=== PATIENT | male | born 1945 | race Caucasian/White ===

== ENCOUNTER 2022-10-26 09:08 | Outpatient (CLI) | payer MEDICARE, BC, SELFPAY ==
[2022-10-26 15:04] LABS: Chloride* 105 mmol/L (96-114)
[2022-10-26 15:05] LABS: Potassium* 4.5 mmol/L (3.6-5.1); Sodium* 139 mmol/L (135-149)
[2022-10-26 15:07] LABS: Cholesterol* 217 mg/dL (90-199)
[2022-10-26 15:08] LABS: Blood Urea Nitrogen* 17 mg/dL (7-30); Calcium* 9.5 mg/dL (8.4-10.6); Carbon Dioxide* 25 mmol/L (20-32); Estimated Glomerular Filt Rate 78 ml/min; Glucose* 99 mg/dL (60-115); Triglycerides* 157 mg/dL (40-149)
[2022-10-26 15:09] LABS: HDL Cholesterol* 54 mg/dL (>=40); LDL Cholesterol Calculated 132 mg/dL (<100)
[2022-10-26 15:38] LABS: PSA Screen* 5.12 ng/mL (0.10-4.00)
== END 2022-10-26 09:09 | disposition home or self-care (01) ==
PROVIDERS: PCP Family Medicine; Visit Provider Family Medicine
DX: I10 Essential (primary) hypertension (principal); E78.5 Hyperlipidemia, unspecified; Z12.5 Encounter for screening for malignant neoplasm of prostate
CPT/HCPCS: 80048; 80061; 84153

== ENCOUNTER 2023-02-06 09:32 | Outpatient (CLI) | payer MEDICARE, BC, SELFPAY | END 2023-02-06 09:33 | disposition home or self-care (01) | PROVIDERS: PCP Family Medicine; Visit Provider Family Medicine | DX: R97.20 Elevated prostate specific antigen [PSA] (principal) | CPT/HCPCS: 84153 ==

== ENCOUNTER 2023-08-09 09:26 | Outpatient (CLI) | payer MEDICARE, BC, SELFPAY | END 2023-08-09 09:27 | disposition home or self-care (01) | PROVIDERS: PCP Family Medicine; Visit Provider Family Medicine | DX: I10 Essential (primary) hypertension (principal); E78.5 Hyperlipidemia, unspecified; R97.20 Elevated prostate specific antigen [PSA] | CPT/HCPCS: 80048; 84153 ==

== ENCOUNTER 2023-09-14 08:52 | Outpatient (CLI) | payer MEDICARE, BC, SELFPAY | END 2023-09-14 08:53 | disposition home or self-care (01) | PROVIDERS: PCP Family Medicine; Visit Provider Family Medicine | DX: I35.0 Nonrheumatic aortic (valve) stenosis (principal); I35.1 Nonrheumatic aortic (valve) insufficiency | CPT/HCPCS: 93306 ==

== ENCOUNTER 2023-12-17 11:26 | Outpatient (CLI) | payer MEDICARE, BC, SELFPAY | END 2023-12-17 11:27 | disposition home or self-care (01) | PROVIDERS: PCP Family Medicine; Visit Provider Family Medicine | DX: I10 Essential (primary) hypertension (principal) | CPT/HCPCS: 80048 ==

== ENCOUNTER 2024-01-16 11:59 | Outpatient (CLI) | payer MEDICARE, BC, SELFPAY | END 2024-01-16 12:00 | disposition home or self-care (01) | PROVIDERS: PCP Family Medicine; Visit Provider Family Medicine | DX: Z01.818 Encounter for other preprocedural examination (principal); E78.2 Mixed hyperlipidemia; I10 Essential (primary) hypertension | CPT/HCPCS: 80048; 80061; 85025; 85610; 85730 ==

== ENCOUNTER 2024-02-04 04:39 | Emergency (ER) | payer MEDICARE, BC, SELFPAY ==
[2024-02-04 04:49] VITALS: BP 151/86; PULSE 85; RESP 18; TEMP 36.9; O2SAT 96; BMI 34.0
--- NOTE | 2024-02-04 05:05 | XR_ITS ---
Patient: LENIN DENNISON Facility:?[facility] Patient ID:?[id number] Site Patient ID:?[id number]. Site :?[id number] Study:?XRay-Abdomen 2 VIEWS-02/04/2024 5:24:11 AM Ordering Physician:JUAN F Final Report: Indication: Abdomen pain. Technique: Abdomen 2 view. Comparison: None. Findings: Bowel: Bowel pattern is normal. Lung stool burden is mild/moderate Other: No sign of free air. No sign of soft tissue mass. No suspicious calcifications. Mild degenerative spondylosis. Impression: Mild/moderate colonic stool burden. Dictated by Kareem Lanza MD @ 02/04/2024 6:10:20 AM Signed by:?Kareem Lanza MD @02/04/2024 6:10:20 AM (Electronic Signature)
--- NOTE | 2024-02-04 05:06 | ED_ITS ---
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 He was discharged home this past January 28. He notes since leaving the hospital yeast had difficulty with nausea, he has minimized how much he is eating because he did not want to throw up. He has had decreased bowel movements and is concerned about constipation. He did try Dulcolax and Pepto-Bismol. Last bowel movement was over 24 hours ago but he notes that it was dark black. He has not had significant abdominal pain, fevers, has not had vomiting, only nausea intermittently. Hemoglobin at time of discharge was reportedly 10.5. He was discharged home on potassium replacement but his reports he has not taken that for the past several days because they thought it might be making the nausea worse. Denies prior abdominal surgeries. Does not smoke or drink, here tonight with his . He is not anticoagulated. Other medications reviewed. Related Data Home Medications Medication Instructions Recorded Confirmed cpap Inhaled 10/26/22 01/16/24 multivitamin 1 tab PO QDAY 02/05/23 01/16/24 fluorouracil 5 % topical cream 1 applic topical BID PRN 01/16/24 01/16/24 Previous Rx's Medication Instructions Recorded metoprolol tartrate 100 mg tablet 100 mg PO QDAY #90 tabs 08/09/23 ondansetron 4 mg disintegrating 4 mg PO Q8H PRN nausea and 02/04/24 tablet vomiting #10 tabs Allergies Allergy/AdvReac Type Severity Reaction Status Date / Time shrimp Allergy Mild itching Verified 01/16/24 11:41 penicillin V Allergy Unknown Unknown Verified 01/16/24 11:41 [facility] Medical History (Updated 02/04/24 @ 06:19 by Roya Santos MD) Mixed hyperlipidemia ?E78.2 - Mixed hyperlipidemia (ICD-10) Primary hypertension ?I10 - Essential (primary) hypertension (ICD-10) Elevated PSA ?R97.20 - Elevated prostate specific antigen [PSA] (ICD-10) Obstructive sleep apnea syndrome (2015) ?G47.33 - Obstructive sleep apnea (adult) (pediatric) (ICD-10) History of rheumatic fever as a child ?Z86.79 - Personal history of other diseases of the circulatory system (ICD- 10) History of malignant neoplasm of skin (11/2018) ?Z85.828 - Personal history of other malignant neoplasm of skin (ICD-10) Hearing loss ?H91.90 - Unspecified hearing loss, unspecified ear (ICD-10) Carpal tunnel syndrome of left wrist ?G56.02 - Carpal tunnel syndrome, left upper limb (ICD-10) Benign prostatic hyperplasia ?N40.0 - Benign prostatic hyperplasia without lower urinary tract symptoms (ICD-10) Surgical History History of spinal surgery (03/17/09) ?Z98.890 - Other specified postprocedural states (ICD-10) History of prostate biopsy (01/11/90) ?Z98.890 - Other specified postprocedural states (ICD-10) History of lithotripsy (02/23/17) ?Z98.890 - Other specified postprocedural states (ICD-10) History of excision of epidermal inclusion cyst (07/16/18) ?Z98.890 - Other specified postprocedural states (ICD-10) ?Z87.2 - Personal history of diseases of the skin and subcutaneous tissue (ICD-10) Social History (Updated 08/09/23 @ 09:07 by Winifred Fuentes ~ RMA, RMA) Narrative: , 3 kids Non smoker 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 What is your current living situation?: I presently have a place to live Problems where you live: no known problems In the past 12 months, utilities in danger of being shut off: no In past 12 months, lack of transportation kept you from medical appts, meetings, work, or getting things needed for daily living: no In the past 12 mos, have been you worried that your food would run out before you had money to buy more?: never true In the past 12 mos, the food you bought just didn't last and you didn't have money to buy more?: never true Smoking Status: Former smoker Second hand tobacco smoke exposure: No How often do you have a drink containing alcohol: never AUDIT-C Alcohol total score: 0 Non-prescribed substance use: denies use How often does anyone, including family, friends and others, physically hurt you : never How often does anyone, including family, friends and others, insult or talk down to you: never How often does anyone, including family, friends and others, threaten you with h arm: never How often does anyone, including family, friends and others, scream or curse at you: never Little interest or pleasure in doing things: not at all Feeling down, depressed, or hopeless: not at all Exam Narrative: Exam Narrative: Vital signs as noted above. In general, an alert, well-appearing patient. Head: Normocephalic, atraumatic. Eyes: Pupils are equal reactive. Extraocular movements are full. Conjunctivae are normal. ENT: Mucous membranes are moist. Throat is normal. Neck: Supple without lymphadenopathy. Heart: Regular rate and rhythm. No murmur or rub. Incision is healing well, no surrounding erythema. Lungs: Clear bilaterally. No increased work of breathing, crackles or wheezes. Abdomen: Soft and nontender. Rectal: No hemorrhoids externally. Enlarged prostate. Stool is greenish black. No benjamin blood. Extremities: Well perfused. No edema. No calf tenderness. Pulses intact. Neurologic: Patient is alert and oriented to person and place. Speech is fluent. Face is symmetric. Moves all extremities equally. Affect: Normal. Skin: Warm and dry. Well perfused. Const: Vital Signs, click to edit/add: Vital Signs - 24 hr 02/04/24 04:49 Temperature 98.4 F Pulse Rate [Pulse Oximeter] 85 Respiratory Rate 18 Blood Pressure [Ri ght Upper Arm] 151/86 H Pulse Oximetry 96 Oxygen Delivery Me thod Room Air Course Course ED Course: Stool sent for fecal occult blood, although with constipation have less suspicion of significant GI bleeding. Will get an x-ray to see if he has significant stool burden or whether he has decreased output secondary to decreased intake. Cbc to check stability of hemoglobin, will get a metabolic panel as well and see where his potassium is. Abdominal x-ray does show some stool, but not an overly significant amount. No air-fluid levels. Final radiology read as follows:Findings: Bowel: Bowel pattern is normal. Lung stool burden is mild/moderate Other: No sign of free air. No sign of soft tissue mass. No suspicious calcifications. Mild degenerative spondylosis. Impression: Mild/moderate colonic stool burden. Labs notable for hemoglobin of 11.7, normal white blood cell count, metabolic panel is normal, potassium today is 4.4. Fecal occult blood is negative. I reviewed all this with the patient and his . I think it is reasonable to start him on some MiraLax, give him some Zofran to help with nausea. He does not have any significant abdominal tenderness or pain, I do not think he needs imaging today in terms of CT scan. He will follow-up tomorrow with Dr. Raymond as planned. Return any time for acute worsening. Vital Signs Vital signs: Initial Vital Signs Temperature 98.4 F 02/04/24 04:49 Temperature Source Temporal Artery Scan 02/04/24 04:49 Pulse Rate 85 02/04/24 04:49 Respiratory Rate 18 02/04/24 04:49 Blood Pressure 151/86 H 02/04/24 04:49 Blood Pressure Mean 107 H 02/04/24 04:49 Blood Pressure Position Sitting 02/04/24 04:49 Pulse Oximetry 96 02/04/24 04:49 Oxygen Delivery Method Room Air 02/04/24 04:49 Vital Signs Temperature 98.4 F 02/04/24 04:49 Pulse Rate 85 02/04/24 04:49 Respiratory Rate 18 02/04/24 04:49 Blood Pressure 151/86 H 02/04/24 04:49 Pulse Oximetry 96 02/04/24 04:49 Oxygen Delivery Method Room Air 02/04/24 04:49 Temperature 98.4 F 02/04/24 04:49 Pulse Rate 85 02/04/24 04:49 Respiratory Rate 18 02/04/24 04:49 Blood Pressure 151/86 H 02/04/24 04:49 Pulse Oximetry 96 02/04/24 04:49 Oxygen Delivery Method Room Air 02/04/24 04:49 Medical Decision Making Lab Data Labs: Lab Results 02/04/24 02/04/24 Range/Units 05:00 05:25 WBC 8.15 (4.50-11.00) K/uL RBC 3.85 L (4.30-5.90) m/uL Hgb 11.7 L (13.5-17.5) gm/dL Hct 35.1 L (37.0-53.0) % MCV 91 (80-100) fL MCH 30 (26-34) pg MCHC 33 (32-36) gm/dL RDW Coeff of Mayela 13.4 (11.5-15.5) % Plt Count 320 (140-440) K/uL Neut % (Auto) 78.0 H (42.0-72.0) % Lymph % (Auto) 9.6 L (20-44) % Giles % (Auto) 7.1 (0.0-11.0) % Eos % (Auto) 3.2 (0.0-7.0) % Baso % (Auto) 0.5 (0.0-3.0) % Neut # (Auto) 6.40 (1.7-7.0) K/uL Lymph # (Auto) 0.80 L (0.90-2.90) K/uL Giles # (Auto) 0.60 (0.00-0.90) K/UL Eos # (Auto) 0.26 (0.00-0.50) K/uL Baso # (Auto) 0.04 (0.00-0.30) K/uL Abs Immat Gran (auto) 0.13 (0.00-0.30) K/uL Imm/Tot Granulo (auto) 1.6 % Sodium 135 (135-149) mmol/L Potassium 4.4 (3.6-5.1) mmol/L Chloride 100 (96-114) mmol/L Carbon Dioxide 28 (20-32) mmol/L Anion Gap 7 (7-15) mEq/L BUN 16 (7-30) mg/dL Creatinine 0.9 (0.5-1.5) mg/dL Estimated Creat Clear 56.92 Estimated GFR 87 ml/min Glucose 113 (60-115) mg/dL Calcium 9.6 (8.4-10.6) mg/dL Stool Occult Blood Negative (Negative) Discharge Plan Discharge Clinical Impression: Constipation Patient Disposition: Home, Self-Care Condition: Stable Instructions: Constipation (DC) Additional Instructions: Zofran if needed for nausea. Increase fiber in fluids as able. MiraLax 1 capful daily, this can be purchased [id number]. I was not able to prescribe Zofran from [facility], but I did send a prescription to your pharmacy. Follow-up with Dr. Raymond tomorrow as planned. Your potassium today is normal. There is no evidence of blood in your stool. Prescriptions: New ondansetron 4 mg tablet,disintegrating 4 mg PO Q8H PRN (Reason: nausea and vomiting) Qty: 10 0RF No Action cpap Inhaled multivitamin Tablet 1 tab PO QDAY metoprolol tartrate 100 mg tablet 100 mg PO QDAY Qty: 90 3RF fluorouracil 5 % cream 1 applic topical BID PRN Follow Up/Referrals: Bhavesh Raymond MD [Primary Care Provider] - Stand Alone Forms: [employer] Info Instructions
[2024-02-04 05:14] LABS: Fecal Occult Blood* Negative (Negative)
[2024-02-04 05:35] LABS: Basophils Absolute Auto 0.04 K/uL (0.00-0.30); Basophils Percent Auto 0.5 % (0.0-3.0); Eosinophils Absolute Auto 0.26 K/uL (0.00-0.50); Eosinophils Percent Auto 3.2 % (0.0-7.0); Hematocrit 35.1 % (37.0-53.0); Hemoglobin* 11.7 gm/dL (13.5-17.5); Immature Granulocytes Abs Auto 0.13 K/uL (0.00-0.30); Immature Granulocytes Pct Auto 1.6 %; Lymphocytes Percent Auto 9.6 % (20-44); Mean Corpuscular HGB Conc 33 gm/dL (32-36); Mean Corpuscular Hemoglobin 30 pg (26-34); Mean Corpuscular Volume 91 fL (80-100); Monocytes Percent Auto 7.1 % (0.0-11.0); Platelet Count* 320 K/uL (140-440); RDW Coefficient of Variation % 13.4 % (11.5-15.5); Red Blood Count 3.85 m/uL (4.30-5.90); White Blood Count* 8.15 K/uL (4.50-11.00)
[2024-02-04 05:36] LABS: Slide Review Reflex No
[2024-02-04 05:43] LABS: Chloride* 100 mmol/L (96-114); Potassium* 4.4 mmol/L (3.6-5.1); Sodium* 135 mmol/L (135-149)
[2024-02-04 05:46] LABS: Anion Gap 7 mEq/L (7-15); Blood Urea Nitrogen* 16 mg/dL (7-30); Carbon Dioxide* 28 mmol/L (20-32); Creatinine* 0.9 mg/dL (0.5-1.5); Est. Creatinine Clearance* 56.92; Estimated Glomerular Filt Rate 87 ml/min; Glucose* 113 mg/dL (60-115)
[2024-02-04 05:47] LABS: Calcium* 9.6 mg/dL (8.4-10.6)
[2024-02-04] MEDS: ONDANSETRON ODT 4 MG TAB PO (06:29)
[2024-02-04 06:30] VITALS: BP 141/85; PULSE 76; RESP 16; O2SAT 97
== END 2024-02-04 06:31 | disposition home or self-care (01) ==
PROVIDERS: Emergency Provider Emergency Medicine; PCP Family Medicine
DX: K59.00 Constipation, unspecified (principal)
CPT/HCPCS: 36415; 74019; 80048; 82270; 85025; 99284; A9270

== ENCOUNTER 2024-04-25 09:12 | Outpatient (CLI) | payer MEDICARE, BC, SELFPAY ==
--- OUTSIDE RECORDS SUMMARY | 2024-04-25 09:16 | XMS_ITS | Clinical Summary ---
Author Organization [facility] Address [place], [place] [address] Care Team Providers Care Plush Finisher Name Role Phone Bhavesh Raymond MD Primary Care Provider + Allergies Active Allergy Reactions Criticality Noted Date Comments Shellfish Derived Itching,Nausea Only Ezetimibe Headache Low 03/21/2024 intolerance Medications Medication Sig Dispensed Refills Start Date End Date Status acetaminophen (TYLENOL EXTRA STRGTH) 500 mg tabletIndications:S/ P AVR (aortic valve replacement) Take 2 Tablets (1,000 mg) by mouth every 6 hours if needed for Pain. Max acetaminophen dose: 4000mg in 24 hrs. 01/29/2024 Active multivitamin (MVI) tabletIndications:An emia, unspecified type Take 1 Tablet by mouth once daily. 01/29/2024 Active Fluorouracil 5 % topical solutionIndications: Mixed hyperlipidemia Apply topically to affected area(s) once daily. 01/29/2024 Active aspirin (ECOTRIN) 81 mg enteric coated tabletIndications:my ocardial infarction prevention Take 1 Tablet (81 mg) by mouth once daily with a meal. 90 Tablet 01/29/2024 Active metoprolol succinate (Toprol XL) 50 mg sustained-release tabletIndications:S/ P AVR (aortic valve replacement),HTN (hypertension) Take 1 Tablet (50 mg) by mouth once daily. Patient to take toprol XL 25 mg tablet along with toprol XL 50 mg tablet to equal 75 mg daily. 90 Tablet 3 03/06/2024 Active metoprolol succinate (Toprol XL) 25 mg Sustained-Release tabletIndications:S/ P AVR (aortic valve replacement),HTN (hypertension) Take 1 Tablet (25 mg) by mouth once daily. Patient to take toprol XL 25 mg tablet along with toprol XL 50 mg tablet to equal 75 mg daily. 90 Tablet 3 03/06/2024 Active rosuvastatin (Crestor) 5 mg tabletIndications:Mi xed hyperlipidemia Take 1 Tablet (5 mg) by mouth at bedtime. If any recurrent rash or other symptoms, will stop crestor. 90 Tablet 3 03/21/2024 Active Active Problems Problem Noted Date Diagnosed Date Anemia 01/26/2024 S/P AVR (aortic valve replacement) 01/25/2024 Overview: Aortic Valve. [employer], Inspiris Resilia Aortic Valve, size 25mm. SN [id number], ref [id number], exp 09/06/23. Placed by Dr. Precious Garcia on 01/25/24. Moderate to severe aortic stenosis 10/12/2023 Mixed hyperlipidemia 10/12/2023 HTN (hypertension) 10/12/2023 Herniated Disc L3-4 left 03/14/2009 Encounters Date Type Department Care Team Description 03/21/2024 Telephone [facility] [address] [facility] [address] [place] [id number] Justin Sanford MD Medication Management (Relates GONZALES symptoms to cholesterol Rx) 03/06/2024 1:30 PM CDT Office Visit [facility] [address] [place] [address] Justin Sanford MD 03/06/2024 Telephone [facility] [place] [facility] [address] [place] [address] Dr [address] [place] [address] Justin Sanford MD Health Maintenance Update 03/05/2024 11:30 AM CDT - 03/05/2024 11:59 PM CDT Hospital Encounter [facility] [address] [place] [address] Bhavesh Raymond MD 03/05/2024 Travel 03/03/2024 11:23 AM CDT - 03/03/2024 11:59 PM CDT Hospital Encounter [facility] [address] [place] [address] Bhavesh Raymond MD 03/03/2024 Travel 02/29/2024 11:26 AM CDT - 02/29/2024 11:59 PM CDT Hospital Encounter [facility] [address] [facility] [place] [address] Bhavesh Raymond MD 02/29/2024 Travel 02/27/2024 2:00 PM CDT Office Visit [facility] [address] [facility] [address] [place] [address] Precious Gacria MD CV General Cardiology Est (2pm Clinic F/u Surgery//PCP: Bhavesh Raymond MD/) 02/27/2024 Travel 02/25/2024 11:22 AM CDT - 02/25/2024 11:59 PM CDT Hospital Encounter [facility] [place] [address] Bhavesh Raymond MD 02/25/2024 Travel 02/22/2024 11:23 AM CDT - 02/22/2024 11:59 PM CDT Hospital Encounter [facility] [address] [facility] [place] [address] Bhavesh Raymond MD 02/22/2024 Travel 02/20/2024 11:19 AM CDT - 02/20/2024 11:59 PM CDT Hospital Encounter [facility] [address] [address] Bhavesh Raymond MD 02/20/2024 Travel 02/18/2024 11:26 AM CDT - 02/18/2024 11:59 PM CDT Hospital Encounter [facility] [address] [place] [address] Bhavesh Raymond MD 02/18/2024 Travel 02/15/2024 11:17 AM CDT - 02/15/2024 11:59 PM CDT Hospital Encounter [facility] [address] [place] [address] Bhavesh Raymond MD 02/14/2024 10:49 AM CDT - 02/14/2024 11:59 PM CDT Hospital Encounter [facility] [address] [place] [address] Sabrina Perez PA S/P AVR (aortic valve replacement) 02/14/2024 Travel 01/25/2024 7:24 AM CDT Anesthesia Event [facility] [address] [place] [id number] Paul Beckett CRNA Taylor, Phillip Norman, MD 01/25/2024 7:00 AM CDT - 01/25/2024 1:06 PM CDT Surgery [facility] [address], [place] [address] Precious Garcia MD INTRAOP JOSE MANUEL BY DR RICHARD; STERNOTOMY; REPLACEMENT OF AORTIC VALVE WITH INSPIRIS, SIZE 25MM; TEMPORARY PLACEMENT OF ATRIAL AND VENTRICULAR PACING WIRES PLACED 01/25/2024 5:26 AM CDT - 01/29/2024 12:45 PM CDT Hospital Encounter [facility] [address] [place] [address] Precious Garcia MD S/P AVR (aortic valve replacement) (Primary Dx); Postoperative urinary retention; Hypertension, unspecified type; Anemia, unspecified type; Mixed hyperlipidemia Discharge Disposition: Home Self Care 01/25/2024 Travel from Last 3 Months Social History Tobacco Use Types Packs/Day Years Used Date Smoking Tobacco: Former Smokeless Tobacco: Never Comments:HS yrs Alcohol Use Standard Drinks/Week Comments Not Currently 7 (1 standard drink = 0.6 oz pur e alcohol) PHQ-2 Answer Date Recorded PHQ-2 TOTAL SCORE 2 02/14/2024 Social Connections Answer Date Recorded Frequency of Communication with Friends and Fami ly Not on file 10/12/2023 Sex and Gender Information Value Date Recorded Sex Assigned at Not on file Gender Identity Not on file Sexual Orientation Not on file Obstetrics History Last Filed Vital Signs Vital Sign Reading Time Taken Comments Blood Pressure 121/66 02/27/2024 1:30 PM CDT Pulse 85 02/27/2024 1:30 PM CDT Temperature 36.3 ??C (97.3 ??F) 01/29/2024 8:39 AM CD T Respiratory Rate 18 02/14/2024 3:00 PM CDT Oxygen Saturation 96% 02/27/2024 1:30 PM CDT Inhaled Oxygen Concentration - - Weight 96.9 kg (213 lb 9.6 oz) 02/27/2024 1:30 P M CDT Height 172.7 cm (5' 8) 02/27/2024 1:30 PM CDT Body Mass Index 32.48 02/27/2024 1:30 PM CDT Plan of Treatment Health Maintenance Due Date Last Done Comments Pneumococcal series for age 65+ (1 of 2 - PCV) 1951 Tdap 1956 Hepatitis C screening for ag e 18-79 1963 Tetanus booster 1965 Zoster (shingles) series for age 50+ (1 of 2) 1995 Medicare Wellness for age 65+ 2010 COVID-19 vaccine series ( - season) 2023 11/17/2020 Influenza for age 65+ 06/29/2024 BMI (ht and wt on same day) for age 18+ 02/26/2025 02/27/2024, 12/03/2023, 02/19/2017 Depression screening for age 12+ 02/26/2025 02/27/2024, 02/18/2024, 02/15/2024, Additional history exists Medical Devices Implanted Type Area Shader And Toner Device Identifier Shelf Expiration Date Model / Serial / Lot Stent Uret [id number] Contour - [id number] Implanted:Qty: 1 on 02/23/2017 by Michael [place] MD at [facility] Left: Ureter [facility] 09/14/2019 [id number]# / / [id number] Stent Uret [id number] Contour - [id number] Implanted:Qty: 1 on 02/23/2017 by Michael [place] MD at [facility] Right: Ureter [facility] 04/29/2018 [id number]# / / [id number] Valve Aortic 25mm Inspirus Resilia Tissue - [id number] Implanted:Qty: 1 on 01/25/2024 by Precious Garcia MD at [facility] N/A: Aortic Valve [employer] [place] 09/05/2027 [id number] / [id number] / Description:Aortic Valve. [employer], Inspiris Resilia Aortic Valve, size 25mm. SN [id number], ref [id number], exp 09/06/23. Placed by Dr. Precious Garcia on 01/25/24. Procedures Procedure Name Priority Date/Time Associated Diagnosis Comments SCAN-CARDIAC REHABILITATION 03/05/2024 11:36 AM CDT SCAN-CARDIAC REHABILITATION 03/05/2024 11:36 AM CDT SCAN-CARDIAC REHABILITATION 03/03/2024 11:50 AM CDT SCAN-CARDIAC REHABILITATION 02/29/2024 11:30 AM CDT SCAN-CARDIAC REHABILITATION 02/25/2024 11:39 AM CDT SCAN-CARDIAC REHABILITATION 02/22/2024 11:30 AM CDT SCAN-CARDIAC REHABILITATION 02/20/2024 11:27 AM CDT SCAN-CARDIAC REHABILITATION 02/18/2024 11:31 AM CDT SCAN-CARDIAC REHABILITATION 02/15/2024 11:22 AM CDT SCAN-CARDIAC REHABILITATION 02/14/2024 12:04 PM CDT PLATELET COUNT Early AM 01/29/2024 9:00 AM CDT HEMOGLOBIN Early AM 01/29/2024 9:00 AM CDT CREATININE Early AM 01/29/2024 9:00 AM CDT ELECTROLYTE PANEL Early AM 01/29/2024 9:0 0 AM CDT ECHO TTE COMPLETE W CONTRAST Routine 01/29/2024 8:38 AM CDT SCAN-CARDIAC STRIP 01/29/2024 7: 49 AM CDT SCAN-CARDIAC STRIP 01/29/2024 1: 27 AM CDT EKG 12 LEAD Routine 01/28/2024 1:33 PM CDT XR CHEST 2 VIEWS PA AND LATERAL Routine 01/28/2024 11:32 AM CDT SCAN-CARDIAC STRIP 01/28/2024 10:01 AM CDT SCAN-CARDIAC STRIP 01/28/2024 9: 59 AM CDT CBC W PLT NO DIFF Early AM 01/28/2024 7:4 0 AM CDT BASIC METABOLIC PANEL Early AM 01/28/2024 7:40 AM CDT PROTIME-INR Early AM 01/28/2024 7:40 AM CDT SCAN-CARDIAC STRIP 01/27/2024 7: 27 PM CDT SCAN-CARDIAC STRIP 01/27/2024 8: 08 AM CDT MAGNESIUM Early AM 01/27/2024 6:53 AM CDT PLATELET COUNT Early AM 01/27/2024 6:53 AM CDT HEMOGLOBIN Early AM 01/27/2024 6:53 AM CDT BASIC METABOLIC PANEL Early AM 01/27/2024 6:53 AM CDT PROTIME-INR Early AM 01/27/2024 6:53 AM CDT GLUCOSE METER Timed 01/26/2024 10:06 PM CDT SCAN-CARDIAC STRIP 01/26/2024 8: 35 PM CDT GLUCOSE METER Timed 01/26/2024 5:41 PM CDT SCAN-CARDIAC STRIP 01/26/2024 10:59 AM CDT GLUCOSE METER Timed 01/26/2024 7:41 AM CDT EKG 12 LEAD Early AM 01/26/2024 6:36 AM CDT GLUCOSE METER Timed 01/26/2024 6:05 AM CDT XR CHEST 1 VIEW PORTABLE Routine 024 4:48 AM CDT GLUCOSE METER Timed 01/26/2024 4:19 AM CDT MAGNESIUM BONY 01/26/2024 4:12 AM CDT [facility] DRAW ONLY Early AM 01/26/2024 4:12 AM CDT PROTIME-INR Early AM 01/26/2024 4:12 AM CDT HEMOGLOBIN Early AM 01/26/2024 4:12 AM CDT BASIC METABOLIC PANEL Early AM 01/26/2024 4:12 AM CDT GLUCOSE METER Timed 01/26/2024 3:06 AM CDT GLUCOSE METER Timed 01/26/2024 1:51 AM CDT GLUCOSE METER Timed 01/25/2024 11:48 PM CDT GLUCOSE METER Timed 01/25/2024 9:50 PM CDT SCAN-CARDIAC STRIP 01/25/2024 8: 00 PM CDT POTASSIUM Timed 01/25/2024 7:42 PM CDT GLUCOSE METER Timed 01/25/2024 7:41 PM CDT GLUCOSE METER Timed 01/25/2024 6:15 PM CDT GLUCOSE METER Timed 01/25/2024 5:01 PM CDT GLUCOSE METER Timed 01/25/2024 3:33 PM CDT GLUCOSE METER Timed 01/25/2024 2:25 PM CDT GLUCOSE METER Timed 01/25/2024 1:16 PM CDT XR CHEST 1 VIEW PORTABLE STAT 024 1:02 PM CDT EKG 12 LEAD STAT 01/25/2024 12:09 PM CDT FIBRINOGEN,QUANTITATIVE STAT 01/25/20 24 12:09 PM CDT THROMBIN TIME STAT 01/25/2024 12:09 PM CDT PROTIME-INR STAT 01/25/2024 12:09 PM CDT APTT STAT 01/25/2024 12:09 PM CDT PLATELET COUNT STAT 01/25/2024 12:09 PM CDT MAGNESIUM STAT 01/25/2024 12:09 PM CDT POTASSIUM STAT 01/25/2024 12:09 PM CDT HEMOGLOBIN STAT 01/25/2024 12:09 PM CDT ARTERIAL BLOOD GAS STAT 01/25/2024 12:09 PM CDT GLUCOSE METER Timed 01/25/2024 12:08 PM CDT ECHO JOSE MANUEL INTRAOPERATIVE Routine 01/25/20 12:03 PM CDT TRANSFUSE PLT (NURSE COMMUNICATION ORDER) Today 01/25/2024 11:40 AM CDT PLATELET ORDER Today 01/25/2024 11:29 AM CDT PLATELET EA UNIT Today 01/25/2024 11:26 AM CDT CARDIAC THROMBOELASTOGRAPHY STAT 01/25/2024 11:01 AM CDT FIBRINOGEN,QUANTITATIVE STAT 01/25/20 11:01 AM CDT APTT STAT 01/25/2024 11:01 AM CDT PROTIME-INR STAT 01/25/2024 11:01 AM CDT PLATELET COUNT STAT 01/25/2024 11:01 AM CDT PATH TISSUE EXAM Today 01/25/2024 10:13 AM CDT JOSE MANUEL Routine 01/25/2024 8:17 AM CDT HCHG KIT PR5 Routine 01/25/2024 8:16 AM CDT [facility]HC AN INTRODUCER 1 LUMEN PERFORMABLE Routine 01/25/2024 8:16 AM CDT [facility] DRSG PR1 Routine 01/25/2024 8:16 AM CDT [facility] DRSG PR5 Routine 01/25/2024 8:16 AM CDT HCHG TUBING PR5 Routine 01/25/2024 8:16 AM CDT [facility] KIT MONITORING PR5 Routine 01/25/20 8:16 AM CDT [facility] CATH INFUSION PR30 Routine 01/25/20 8:16 AM CDT [facility] ANES US GUIDE FOR VASC ACCESS Routine 01/25/2024 8:16 AM CDT [facility] STOPCOCK PR5 Routine 01/25/2024 8:1 6 AM CDT HC INTRDCR NON GUIDING NON LASER PR40 Routine 01/25/2024 8:16 AM CDT CVC TRIPLE LUMEN Routine 01/25/2024 8:16 AM CDT ENDOTRACHEAL TUBE Routine 01/25/2024 7:5 1 AM CDT ENDOTRACHEAL TUBE Routine 01/25/2024 7:5 1 AM CDT HG KIT PR5 Routine 01/25/2024 7:16 AM CDT [facility] DRSG PR5 Routine 01/25/2024 7:16 AM CDT [facility] DRSG PR1 Routine 01/25/2024 7:16 AM CDT [facility] TUBING PR20 Routine 01/25/2024 7:16 AM CDT [facility] TUBING PR1 Routine 01/25/2024 7:16 AM CDT [facility] ANES ARTERIAL CATH FOR SAMPLE MONITOR TRANS Routine 01/25/2024 7:16 AM CDT [facility] ANES US GUIDE FOR VASC ACCESS Routine 01/25/2024 7:16 AM CDT [facility] CATH PR5 Routine 01/25/2024 7:16 AM CDT REPLACEMENT AORTIC VALVE 024 6:54 AM CDT Rhuematic Mod- severe Aortis Stenosis Case Notes REPLACEMENT AORTIC VALVE W/JOSE MANUEL TYPE & SCREEN Preop 01/25/2024 6:25 AM CDT PROTIME-INR Preop 01/25/2024 6:24 AM CDT CBC W PLT NO DIFF Preop 01/25/2024 6:2 4 AM CDT BASIC METABOLIC PANEL Preop 01/25/2024 6:24 AM CDT SCAN-OPERATIVE/PROCEDURE REPORT 01/25/2024 12:00 AM CDT from Last 3 Months Results * SCAN-CARDIAC REHABILITATION (03/05/2024 11:36 AM CDT) Only the most recent of10 resultswithin the time period is included. Scanner OTHER * Platelets AM (01/29/2024 9:00 AM CDT) Only the most recent of4 resultswithin the time period is included. PLATELET COUNT 162 140 - 440 thou/cu mm 01/29/2024 9:25 AM CDT [facility] MPV 10.0 6.5 - 11.0 fL 01/29/2024 9:25 AM CDT [facility] Blood BLOOD SPECIMEN / Unknown Venipuncture / Unknown 01/29/2024 9:00 AM CDT 01/29/2024 9:07 AM CDT Carol Castorena MD HEMATOLOGY Performing Organization Address City/[facility] Co de Phone Number [facility] [address] [place] [address], * (ABNORMAL) Hemoglobin AM (01/29/2024 9:00 AM CDT) Only the most recent of4 resultswithin the time period is included. HEMOGLOBIN 10.5(L) 13.5 - 17.5 g/dL 01/29/2024 9:25 AM CDT [facility] MCV 90 80 - 100 fL 01/29/2024 9:25 AM CDT [facility] Blood BLOOD SPECIMEN / Unknown Venipuncture / Unknown 01/29/2024 9:00 AM CDT 01/29/2024 9:07 AM CDT Carol Castorena MD HEMATOLOGY Performing Organization Address City/[facility]/ZIP Co de Phone Number [facility] [address] [place] [address], [place] * (ABNORMAL) Creatinine AM (01/29/2024 9:00 AM CDT) eGFR 82(L) >90 mL/min/1.7 3m2 01/29/2024 9:32 AM CDT [facility] Comment:As of 2022, eG FR is calculated by the CKD-EPI creatinine equation without race adjustment. ??eGFR can be influenced by muscle mass, exercise, and diet. ??The reported eGFR is an estimation only and is only applicable if the renal function is stable. CREATININE 0.95 0.70 - 1.20 mg/dL 01/29/2024 9:32 AM CDT [facility] Blood BLOOD SPECIMEN / Unknown Venipuncture / Unknown 01/29/2024 9:00 AM CDT 01/29/2024 9:07 AM CDT Carol Castorena MD CHEMISTRY Performing Organization Address [facility] Co de Phone Number [facility] [address] [place] [address] * Electrolyte panel AM (01/29/2024 9:00 AM CDT) SODIUM 136 136 - 145 mmol/L 01/29/2024 9:32 AM CDT [facility] POTASSIUM 4.2 3.5 - 5.1 mmol/L 01/29/2024 9:32 AM CDT [facility] CHLORIDE 100 98 - 107 mmol/L 01/29/2024 9:32 AM CDT [facility] CO2,TOTAL 26 22 - 29 mmol/L 01/29/2024 9:32 AM CDT [facility] ANION GAP 10 5 - 18 01/29/2024 9:32 AM CDT [facility] Blood BLOOD SPECIMEN / Unknown Venipuncture / Unknown 01/29/2024 9:00 AM CDT 01/29/2024 9:07 AM CDT Carol Castorena MD CHEMISTRY Performing Organization Address [facility]/ZIP Co de Phone Number [facility] [address] [address], * ECHO TTE COMPLETE W CONTRAST (01/29/2024 8:38 AM CDT) AORTIC VALVE MEAN PG 11 mmHg EJECTION FRACTION 73 % LVEDD 5.0 cm EJECTION FRACTION 65 - 70% Anatomical Region Laterality Modality Ultrasound 01/29/2024 8:02 AM CDT Narrative 01/29/2024 8:44 AM CDT ECHOCARDIOGRAM LENIN DENNISON ? Accession#: ?? [id number] : ?1945 78 years Study Date: ?? 01/29/2024 8:02:34 AM Gender: M ?BP: ? 102/79 mmHg Height: 170.00 cm ?BSA: ?2.11 m? ? ? Weight: 100.00 kg ?Tech: ? KRS ? Referring MD: JUAN BETTENCOURT DENVER Site: ? [facility] Reading Location: [facility] Patient Location: Inpatient. Procedure: 2D w/ Contrast, Color Doppler and Spectral Doppler. Indication for study: s/p AVR Cardiac Rhythm: Regular.Study quality: Fair. Final Impressions: 1. Normal LV size, mildly increased wall thickness, estimated EF of 65 - 70%. 2. Normal RV size and systolic function. 3. S/P 25 mm Inspiris bioprosthesis AVR, no stenosis (11 mmHg), and no regurgitation. 4. Normal estimated RA pressure. 5. No pericardial effusion. 6. Echo contrast was administered to enhance visualization of all left ventricular segments. Chamber Sizes and Function Normal left ventricular size, mildly increased wall thickness, normal global systolic function with an estimated EF of 65 - 70%. Left atrial size is normal. Right ventricular cavity size is normal, global systolic RV function is normal. The right atrium is normal. The pulmonary artery is not well visualized. The sinus of Valsalva is normal sized. The ascending aorta is not well visualized. Valves, RV Pressures and Diastolic Function The aortic valve is functioning 25 mm Inspiris bioprosthesis replacement, no stenosis and no regurgitation. The mitral valve is normal in structure, no mitral regurgitation. Normal diastolic function. The tricuspid valve is normal in structure. Tricuspid regurgitation is regurgitation is not evident. The pulmonic valve is not well visualized. No pulmonary regurgitation. Masses, Effusion, Shunts There is no pericardial effusion. The inferior vena cava is normal sized, respiratory size variation greater than 50%. No left to right shunting was detected by limited color flow Doppler interrogation of the interatrial septum. MEASUREMENTS AND CALCULATIONS 2-D Measurements and LV Function: LVID (d) 5.0 cm LV FS% (2D) ?? 24 % LVID (s) 3.8 cm LVOT diameter 2.1 cm IVS (d) ??1.2 cm HR ?94 bpm LVPW (d) 1.2 cm LA Vol index ??30 ml/m2 Ao Sinus 3.4 cm RV Max 4C (d) 3.9 cm Diastology: Mitral ?Tissue Doppler E Peak 1.1 m/s ??e', Septum ? 0.07 m/s A Peak 0.9 m/s ??e', Lateral ?0.09 m/s E/A ?1.2 ?E/e' Average ?? 13.60 DT ? 182 msec Aortic Valve: Vmax ? 2.4 m/s ??SUE (V) ?? 1.95 cm? ? ? VTI ?0.37 m ?? SUE (I) ?? 2.29 cm? ? ? LVOT V max 1.4 m/s ??Max PG ?23 mmHg LVOT VTI ?? 0.24 m ?? Mean PG ?? 11 mmHg SV ? 85 ml ?Dim Index 0.66 SV index ?? 40 ml/m? ? ? CO ?7.9 l/min ?CI ?3.8 l/min/m? ? ? Mitral Valve: MVA ?4.2 cm? ? ? MV P 1/2 53 msec Tricuspid Valve and estimated PA pressures: TAPSE 1.4 cm Contrast documentation: 2 ml diluted Definity, lot #[id number], [facility]# [id number] was administered peripherally to enhance visualization of all left ventricular segments. . This study was interpreted by an [facility] accredited facility. ??Final ?? Procedure Note Paul Rabago MD - 01/29/2024 ECHOCARDIOGRAM LENIN DENNISON : 1945 78 years Study Date: 01/29/2024 8:02:34 AM Gender: M BP: 102/79 mmHg Height: 170.00 cm BSA: 2.11 m? ? ? Weight: 100.00 kg Tech: BRIAN Lara MD: JUAN SNOW Site: [facility] Reading Location: [facility] Patient Location: Inpatient. Procedure: 2D w/ Contrast, Color Doppler and Spectral Doppler. Indication for study: s/p AVR Cardiac Rhythm: Regular.Study quality: Fair. Final Impressions: 1. Normal LV size, mildly increased wall thickness, estimated EF of 65 -70%. 2. Normal RV size and systolic function. 3. S/P 25 mm Inspiris bioprosthesis AVR, no stenosis (11 mmHg), and noregurgitation. 4. Normal estimated RA pressure. 5. No pericardial effusion. 6. Echo contrast was administered to enhance visualization of all leftventricular segments. Chamber Sizes and Function Normal left ventricular size, mildly increased wall thickness, normalglobal systolic function with an estimated EF of 65 - 70%. Left atrialsize is normal. Right ventricular cavity size is normal, global systolicRV function is normal. The right atrium is normal. The pulmonary artery isnot well visualized. The sinus of Valsalva is normal sized. The ascendingaorta is not well visualized. Valves, RV Pressures and Diastolic Function The aortic valve is functioning 25 mm Inspiris bioprosthesis replacement,no stenosis and no regurgitation. The mitral valve is normal in structure,no mitral regurgitation. Normal diastolic function. The tricuspid valve isnormal in structure. Tricuspid regurgitation is regurgitation is notevident. The pulmonic valve is not well visualized. No pulmonaryregurgitation. Masses, Effusion, Shunts There is no pericardial effusion. The inferior vena cava is normal sized,respiratory size variation greater than 50%. No left to right shunting wasdetected by limited color flow Doppler interrogation of the interatrialseptum. MEASUREMENTS AND CALCULATIONS 2-D Measurements and LV Function: LVID (d) 5.0 cm LV FS% (2D) 24 % LVID (s) 3.8 cm LVOT diameter 2.1 cm IVS (d) 1.2 cm HR 94 bpm LVPW (d) 1.2 cm LA Vol index 30 ml/m2 Ao Sinus 3.4 cm RV Max 4C (d) 3.9 cm Diastology: Mitral Tissue Doppler E Peak 1.1 m/s e', Septum 0.07 m/s A Peak 0.9 m/s e', Lateral 0.09 m/s E/A 1.2 E/e' Average 13.60 DT 182 msec Aortic Valve: Vmax 2.4 m/s SUE (V) 1.95 cm? ? ? VTI 0.37 m SUE (I) 2.29 cm? ? ? LVOT V max 1.4 m/s Max PG 23 mmHg LVOT VTI 0.24 m Mean PG 11 mmHg SV 85 ml Dim Index 0.66 SV index 40 ml/m? ? ? CO 7.9 l/min CI 3.8 l/min/m? ? ? Mitral Valve: MVA 4.2 cm? ? ? MV P 1/2 53 msec Tricuspid Valve and estimated PA pressures: TAPSE 1.4 cm Contrast documentation: 2 ml diluted Definity, lot #[id number], [facility]#[id number] was administered peripherally to enhance visualization of allleft ventricular segments. . This study was interpreted by an [facility] accredited facility. Final Juan DELEON ECHO ORD * SCAN-CARDIAC STRIP (01/29/2024 7:49 AM CDT) Scanner OTHER * SCAN-CARDIAC STRIP (01/29/2024 1:27 AM CDT) Scanner OTHER * EKG 12 LEAD (01/28/2024 1:33 PM CDT) Only the most recent of3 resultswithin the time period is included. Interpretation Normal sinus rhythm Nonspecific ST and T wave abnormality Prolonged QT Abnormal ECG When compared with ECG of 26-JAN-2024 06:36, ST elevation now present in Inferior leads ST no longer elevated in Lateral leads Nonspecific T wave abnormality now evident in Anterior leads BEYOND NOW Ventricular Rate 87 BPM BEYOND NOW Atrial Rate 87 BPM BEYOND NOW P-R Interval 174 ms BEYOND NOW QRS Duration 86 ms BEYOND NOW QT 392 ms BEYOND NOW QTc 471 ms BEYOND NOW P [place] 26 degrees BEYOND NOW R [place] 2 degrees BEYOND NOW T [place] 74 degrees BEYOND NOW 01/28/2024 1:33 PM CDT 01/29/2024 5:46 PM CDT Juan DELEON EKG ORD BEYOND NOW [place], [place] * XR CHEST 2 VIEWS PA AND LATERAL (01/28/2024 11:32 AM CDT) Anatomical Region Laterality Modality CHEST, THORAX, Lung, HEART Digit al Radiography Impressions 01/28/2024 2:25 PM CDT No pneumothorax Trace atelectasis and effusion both lung bases. Removal of central venous line and mediastinal drains. Narrative 01/28/2024 2:25 PM CDT INDICATION Chest tube removal TECHNIQUE 2 views of the chest COMPARISON January 25 Ambrose DELEON [facility] IM[facility] * SCAN-CARDIAC STRIP (01/28/2024 10:01 AM CDT) Scanner OTHER * SCAN-CARDIAC STRIP (01/28/2024 9:59 AM CDT) Scanner OTHER * (ABNORMAL) CBC W PLT NO DIFF (01/28/2024 7:40 AM CDT) Only the most recent of2 resultswithin the time period is included. WHITE BLOOD COUNT 8.8 4.5 - 11.0 thou/cu mm 01/28/2024 8:29 AM CDT [facility] RED BLOOD COUNT 3.36(L) 4.30 - 5.90 mil/cu mm 01/28/2024 8:29 AM CDT [facility] HEMOGLOBIN 10.1(L) 13.5 - 17.5 g/dL 01/28/2024 8:29 AM CDT [facility] HEMATOCRIT 30.7(L) 37.0 - 53.0 % 01/28/2024 8:29 AM CDT [facility] MCV 91 80 - 100 fL 01/28/2024 8:29 AM CDT [facility] MCH 30.1 26.0 - 34.0 pg 01/28/2024 8:29 AM CDT [facility] MCHC 32.9 32.0 - 36.0 g/dL 01/28/2024 8:29 AM T [facility] RDW 13.2 11.5 - 15.5 % 01/28/2024 8:29 AM CDT [facility] PLATELET COUNT 129(L) 140 - 440 thou/cu mm 01/28/2024 8:29 AM CDT [facility] MPV 10.5 6.5 - 11.0 fL 01/28/2024 8:29 AM CDT [facility] NRBC 0.0 % 01/28/2024 8:29 AM CDT [facility] ABS NRBC 0.0 thou /cu mm 01/28/2024 8:29 AM CDT [facility] Blood BLOOD SPECIMEN / Unknown Venipuncture / Unknown 01/28/2024 7:40 AM CDT 01/28/2024 8:18 AM CDT Ambrose DELEON HEMATOLOGY Performing Organization Address [facility] Co de Phone Number [facility] [address] [address], * (ABNORMAL) Protime-INR (01/28/2024 7:40 AM CDT) Only the most recent of6 resultswithin the time period is included. INR 1.2 <1.3 01/28/2024 8:28 AM CDT [facility] PROTIME 13.0(H) 10.3 - 12.3 sec 01/28/2024 8:28 AM CDT [facility] Blood BLOOD SPECIMEN / Unknown Venipuncture / Unknown 01/28/2024 7:40 AM CDT 01/28/2024 8:18 AM CDT Narrative [facility] - 01/28/2024 8:28 AM CDT ?Therapeutic Range 2.0-3.0 for most anticoagulated patients 2.5-3.5 or 4.0 for high risk patients The INR is only used for patients on stable oral anticoagulant therapy. It makes no significant contribution to the diagnosis or treatment of patients whose Protime is prolonged for other reasons. INR results are increased when heparin levels exceed 1.0 U/mL, which corresponds to an aPTT >125 seconds if the patient is on UFH. Precious Garcia MD HEMATOLOGY Performing Organization Address [facility] Co de Phone Number [facility] [address] [place] [address], * (ABNORMAL) BASIC METABOLIC PANEL (01/28/2024 7:40 AM CDT) Only the most recent of4 resultswithin the time period is included. SODIUM 134(L) 136 - 145 mmol/L 01/28/2024 8:44 AM T [facility] POTASSIUM 4.3 3.5 - 5.1 mmol/L 01/28/2024 8:44 AM T [facility] CHLORIDE 98 98 - 107 mmol/L 01/28/2024 8:44 AM [facility] CO2,TOTAL 27 22 - 29 mmol/L 01/28/2024 8:44 AM T [facility] ANION GAP 9 5 - 18 01/28/2024 8:44 AM T [facility] GLUCOSE 110(H) 70 - 99 mg/dL 01/28/2024 8:44 AM T [facility] CALCIUM 8.6(L) 8.8 - 10.2 mg/dL 01/28/2024 8:44 AM [facility] BUN 14 8 - 23 mg/dL 01/28/2024 8:44 AM [facility] CREATININE 0.92 0.70 - 1.20 mg/dL 01/28/2024 8:44 AM [facility] BUN/CREAT RATIO 15 10 - 20 8:44 AM [facility] eGFR 85(L) >90 mL/min/1.7 3m2 01/28/2024 8:44 AM [facility] Comment:As of 2022, eG FR is calculated by the CKD-EPI creatinine equation without race adjustment. ??eGFR can be influenced by muscle mass, exercise, and diet. ??The reported eGFR is an estimation only and is only applicable if the renal function is stable. Blood BLOOD SPECIMEN / Unknown Venipuncture / Unknown 01/28/2024 7:40 AM CDT 01/28/2024 8:18 AM CDT Ambrose DELEON CHEMISTRY [facility] [address] [place] [address], [place] * SCAN-CARDIAC STRIP (01/27/2024 7:27 PM CDT) Scanner OTHER * SCAN-CARDIAC STRIP (01/27/2024 8:08 AM CDT) Scanner OTHER * MAGNESIUM (01/27/2024 6:53 AM CDT) Only the most recent of3 resultswithin the time period is included. MAGNESIUM 1.8 1.6 - 2.4 mg/dL 01/27/2024 8:16 AM CDT [facility] Blood BLOOD SPECIMEN / Unknown Venipuncture / Unknown 01/27/2024 6:53 AM CDT 01/27/2024 7:41 AM CDT Ovidio Dominguez MD CHEMISTRY Performing Organization Address City/[facility]/ZIP Co de Phone Number [facility] [address] [address], [place] * (ABNORMAL) GLUCOSE METER (01/26/2024 10:06 PM CDT) Only the most recent of16 resultswithin the time period is included. GLUCOSE METER 135(H) 65 - 100 mg/dL 01/26/2024 10:07 PM CDT [facility] Blood BLOOD SPECIMEN / Unknown 01/26/2024 10:06 PM CDT 01/26/2024 10:07 PM CDT Precious Garcia MD CHEMISTRY Performing Organization Address City/[facility]/ZIP Co de Phone Number [facility] [address] [place] [address], [place] * SCAN-CARDIAC STRIP (01/26/2024 8:35 PM CDT) Scanner OTHER * SCAN-CARDIAC STRIP (01/26/2024 10:59 AM CDT) Scanner OTHER * XR Chest Portable 1 View- In AM (01/26/2024 4:48 AM CDT) Only the most recent of2 resultswithin the time period is included. Anatomical Region Laterality Modality HEART, THORAX, CHEST Digital Rad iography 01/26/2024 7:46 AM CDT Narrative 01/26/2024 7:46 AM CDT For Patients: ??As a result of the s Act, medical imaging exams and procedure reports are released immediately into your electronic medical record. ??You may view this report before your referring provider. ??If you have questions, please contact your health care provider. INDICATION: Postprocedure. TECHNIQUE: Portable AP chest. COMPARISON: 01/25/2024. FINDINGS: ET tube has been removed since the prior exam. Right IJ catheter and mediastinal drain unchanged in position. Left basilar chest tube is likely still present as well but partially obscured by multiple wires. Sternotomy with AVR. Left basilar atelectasis. Dictated by Mamadou Lee MD @ Jan 26 2024 ??7:46AM (Electronically Signed) [email or web address] Procedure Note Mamadou Lee MD - 01/26/2024 For Patients: As a result of the s Act, medical imagingexams and procedure reports are released immediately into your electronicmedical record. You may view this report before your referring provider.If you have questions, please contact your health care provider. INDICATION: Postprocedure. TECHNIQUE: Portable AP chest. COMPARISON: 01/25/2024. FINDINGS: ET tube has been removed since the prior exam. Right IJ catheter andmediastinal drain unchanged in position. Left basilar chest tube is likelystill present as well but partially obscured by multiple wires. Sternotomywith AVR. Left basilar atelectasis. Dictated by Mamadou Lee MD @ Jan 26 2024 7:46AM (Electronically Signed) [email or web address] Precious Garcia MD GENERAL IMAGING * (ABNORMAL) Calcium Ionized (01/26/2024 4:12 AM CDT) CALCIUM,IONIZE D 1.13(L) 1.15 - 1.27 mmol/L 01/26/2024 4:42 AM CDT [facility] Blood BLOOD SPECIMEN / Unknown Non-Lab Venipuncture / Unknown 01/26/2024 4:12 AM CDT 01/26/2024 4:30 AM CDT Precious Garcia MD CHEMISTRY Performing Organization Address [facility] Co de Phone Number [facility] [address] [place] [address], * SCAN-CARDIAC STRIP (01/25/2024 8:00 PM CDT) Scanner OTHER * POTASSIUM (01/25/2024 7:42 PM CDT) Only the most recent of2 resultswithin the time period is included. POTASSIUM 4.6 3.5 - 5.1 mmol/L 01/25/2024 9:04 PM CDT [facility] Blood BLOOD SPECIMEN / Unknown Non-Lab Venipuncture / Unknown 01/25/2024 7:42 PM CDT 01/25/2024 7:50 PM CDT Yi Ngo MD CHEMISTRY Performing Organization Address [facility] Co de Phone Number [facility] [address] [place] [address], * (ABNORMAL) Thrombin Time - Immediate Postop (01/25/2024 12:09 PM CDT) THROMBIN TIME 17(H) <16 sec 01/25/2024 12:37 PM CDT [facility] Blood BLOOD SPECIMEN / Unknown Non-Lab Venipuncture / Unknown 01/25/2024 12:09 PM CDT 01/25/2024 12:16 PM CDT Precious Garcia MD HEMATOLOGY Performing Organization Address City/[facility]/ZIP Co de Phone Number [facility] [address] [address], * (ABNORMAL) Arterial Blood Gas (01/25/2024 12:09 PM CDT) PH, ARTERIAL 7.41 7.35 - 7.45 01/25/2024 12:20 PM CDT [facility] PCO2, ARTERIAL 39 35 - 48 mmHg 01/25/20 24 12:20 PM CDT [facility] PO2, ARTERIAL 96 83 - 108 mmHg 01/25/2024 12:20 PM CDT [facility] HCO3, ARTERIAL 25 21 - 28 mmol/L 01/25/2024 12:20 PM CDT [facility] BASE EXCESS, ARTERIAL 0.1 -2.0 - 3.0 01/25/2024 12:20 PM CDT [facility] O2 SATURATION, ARTERIAL 99(H) 94 - 98 % 01/25/2024 12:20 PM CDT [facility] INSPIRED O2 01/25/2024 12:20 PM CDT [facility] Comment:Unit of Measure: Lit ers (L) if <=20; Percent (%) if >20 PATIENT TEMPERATURE 37.0 Degrees C 01/25/2024 12:20 PM CDT [facility] Blood ARTERIAL BLOOD SPECIMEN / Unknown Non-Lab Venipuncture / Unknown 01/25/2024 12:09 PM CDT 01/25/2024 12:16 PM CDT Precious Garcia MD CHEMISTRY [facility] [address] [address], * APTT - Immediate Postop (01/25/2024 12:09 PM CDT) Only the most recent of2 resultswithin the time period is included. APTT 31 28 - 36 sec 01/25/2024 12:37 PM CDT [facility] Blood BLOOD SPECIMEN / Unknown Non-Lab Venipuncture / Unknown 01/25/2024 12:09 PM CDT 01/25/2024 12:16 PM CDT Narrative [facility] - 01/25/2024 12:37 PM CDT Therapeutic Range: 57-87 seconds Precious Garcia MD HEMATOLOGY [facility] [address] [place] [address], * Fibrinogen, Quantitative - Immediate Postop (01/25/2024 12:09 PM CDT) Only the most recent of2 resultswithin the time period is included. FIBRINOGEN,VITA NTITATIVE 214 193 - 401 mg/dL 01/25/2024 12:37 PM CDT [facility] Blood BLOOD SPECIMEN / Unknown Non-Lab Venipuncture / Unknown 01/25/2024 12:09 PM CDT 01/25/2024 12:16 PM CDT Precious Garcia MD HEMATOLOGY Performing Organization Address City/[facility]/ZIP Co de Phone Number [facility] [address] [place] [address], * ECHO JOSE MANUEL INTRAOPERATIVE (01/25/2024 12:03 PM CDT) EJECTION FRACTION 55 - 60% Anatomical Region Laterality Modality Computed Radiogr aphy 01/25/2024 7:38 AM CDT Narrative 01/25/2024 2:00 PM CDT TRANSESOPHAGEAL ECHOCARDIOGRAM LENIN Grissom JOSEPHROMEL ? Accession#: ?? [id number] : ?1945 78 years Study Date: ?? 01/25/2024 7:38:07 AM Gender: M ?BP: ? 111/66 mmHg Height: 170.20 cm ?BSA: ?2.11 m? ? ? Weight: 100.60 kg ?Tech: ? Referring MD: MARCELLA OLMSTEAD Site: ? [facility] Reading Location: Patient Location: Procedure: JOSE MANUEL. Indication for study: AVR Cardiac Rhythm: Regular.Study quality: Final Impressions: 1. Normal left ventricular size, normal global systolic function with an estimated EF of 55 - 60%. 2. The aortic valve is calcified and trileaflet, severe stenosis and no regurgitation. 3. Mildly enlarged left atrium. 4. Atrial septum is intact. 5. Decreased left atrial appendage flow velocities. 6. No evidence of thrombus present in the left atrial appendage. Procedure comments: Indications, goals, risks and alternatives of the procedure were discussed with the patient and informed consent was obtained. The patient received general anesthesia. See procedural record for anesthesia details. Prior to performance of procedure, time out was called to accurately identify the patient and procedure. The [place] probe was passed with difficulty. JOSE MANUEL was performed. The patient developed no apparent complications during the procedure. Estimated Blood Loss: 0 ml Versed: Specimen Collected: ?Proceduralist: Sherrie Evans MD Post Procedure Findings (Jonathon Evans). Post-JOSE MANUEL Findings: Discussed with surgeon. S/p sternotomy, bioprosthetic AVR, A + V wires. Patient adequately de-aired prior to termination from CPB. Function assessed in the setting of NSR/A pacing. LV: Hyperdynamic with normal size and function. No wall motion abnormalities appreciated. RV: Normal size and function. AV: S/p bioprosthetic AVR with 25 mm Inspiris. Valve well seated, all leaflets moving, no PVL appreciated. Mean peak gradient 7 mmHg. No AR. MV: Mild central MR in the immediate post-CPB period with ongoing resuscitation. TV: Mild to moderate TR in the immediate post-CPB period with ongoing resuscitation. After chest closure, trace TR. Aorta: Unchanged, no dissection appreciated. Patient's oral cavity and dentition unchanged from pre-procedure upon removal of JOSE MANUEL probe. Chamber Sizes and Function Normal left ventricular size, normal global systolic function with an estimated EF of 55 - 60%. Left atrial size is mildly enlarged. The left atrial appendage is well visualized and there is no evidence of thrombus present. Decreased left atrial appendage flow velocities. Right ventricular cavity size is normal, global systolic RV function is normal. RV wall thickness is normal. The right atrium is normal. The pulmonary artery is of normal size and origin. The sinus of Valsalva is normal sized. The ascending aorta is normal sized. Aortic arch is normal sized. Descending aorta is normal sized. Valves, RV Pressures and Diastolic Function The aortic valve is calcified and trileaflet, severe stenosis and no regurgitation. The mitral valve is normal in structure, mild mitral regurgitation. The tricuspid valve is normal in structure. Tricuspid regurgitation is not evident. The pulmonic valve is normal. Mild pulmonic regurgitation is present on color flow. Masses, Effusion, Shunts There is no pericardial effusion. Atrial septum is intact. MEASUREMENTS AND CALCULATIONS 2-D Measurements and LV Function: HR 58 bpm . ??Final (Updated) ?? Procedure Note Sherrie Evans MD - 01/25/2024 TRANSESOPHAGEAL ECHOCARDIOGRAM LENIN DENNISON : 1945 78 years Study Date: 01/25/2024 7:38:07 AM Gender: M BP: 111/66 mmHg Height: 170.20 cm BSA: 2.11 m? ? ? Weight: 100.60 kg Tech: Referring MD: MARCELLA OLMSTEAD Site: [facility] Reading Location: Patient Location: Procedure: JOSE MANUEL. Indication for study: AVR Cardiac Rhythm: Regular.Study quality: Final Impressions: 1. Normal left ventricular size, normal global systolic function with anestimated EF of 55 - 60%. 2. The aortic valve is calcified and trileaflet, severe stenosis and noregurgitation. 3. Mildly enlarged left atrium. 4. Atrial septum is intact. 5. Decreased left atrial appendage flow velocities. 6. No evidence of thrombus present in the left atrial appendage. Procedure comments: Indications, goals, risks and alternatives of theprocedure were discussed with the patient and informed consent wasobtained. The patient received general anesthesia. See procedural recordfor anesthesia details. Prior to performance of procedure, time out wascalled to accurately identify the patient and procedure. The [place] probewas passed with difficulty. JOSE MANUEL was performed. The patient developed noapparent complications during the procedure. Estimated Blood Loss: 0 ml Versed: Specimen Collected: Proceduralist: Sherrie Evans MD Post Procedure Findings (Jonathon Evans). Post-JOSE MANUEL Findings: Discussed with surgeon. S/p sternotomy,bioprosthetic AVR, A + V wires. Patient adequately de-aired prior to termination from CPB. Functionassessed in the setting of NSR/A pacing. LV: Hyperdynamic with normal size and function. No wall motionabnormalities appreciated. RV: Normal size and function. AV: S/p bioprosthetic AVR with 25 mm Inspiris. Valve well seated, allleaflets moving, no PVL appreciated. Mean peak gradient 7 mmHg. No AR. MV: Mild central MR in the immediate post-CPB period with ongoingresuscitation. TV: Mild to moderate TR in the immediate post-CPB period with ongoingresuscitation. After chest closure, trace TR. Aorta: Unchanged, no dissection appreciated. Patient's oral cavity and dentition unchanged from pre-procedure uponremoval of JOSE MANUEL probe. Chamber Sizes and Function Normal left ventricular size, normal global systolic function with anestimated EF of 55 - 60%. Left atrial size is mildly enlarged. The leftatrial appendage is well visualized and there is no evidence of thrombuspresent. Decreased left atrial appendage flow velocities. Rightventricular cavity size is normal, global systolic RV function is normal.RV wall thickness is normal. The right atrium is normal. The pulmonaryartery is of normal size and origin. The sinus of Valsalva is normalsized. The ascending aorta is normal sized. Aortic arch is normal sized.Descending aorta is normal sized. Valves, RV Pressures and Diastolic Function The aortic valve is calcified and trileaflet, severe stenosis and noregurgitation. The mitral valve is normal in structure, mild mitralregurgitation. The tricuspid valve is normal in structure. Tricuspidregurgitation is not evident. The pulmonic valve is normal. Mild pulmonicregurgitation is present on color flow. Masses, Effusion, Shunts There is no pericardial effusion. Atrial septum is intact. MEASUREMENTS AND CALCULATIONS 2-D Measurements and LV Function: HR 58 bpm . Final (Updated) Marcella Olmstead PA ECHO ORD * TRANSFUSE PLT (NURSE COMMUNICATION ORDER) (01/25/2024 11:40 AM CDT) Blood BLOOD SPECIMEN / Unknown Paul Tomas Sophy DIRECTOR OF PATIENT CARE NURSING BLOOD BANK * PLATELET ORDER, 1 unit (01/25/2024 11:29 AM CDT) QUANTITY 1 01/25/2024 11:29 AM CDT [facility] Blood BLOOD SPECIMEN / Unknown 01/25/2024 11:26 AM CDT Precious Garcia MD BLOOD BANK Performing Organization Address City/[facility]/ZIP Co de Phone Number [facility] [address] [place] [address], [place] [phone] * PLATELET EA UNIT (01/25/2024 11:26 AM CDT) PRODUCT BLOOD TYPE O Rh Positive [facility] [employer] [facility] BLOOD B[facility] PRODUCT ID NUMBER [id number] [facility] [employer] [facility] PRODUCT STATUS Transfused [facility] [employer] [facility]LOOD [facility] PRODUCT DESCRIPTION SDP ACD-A IRR LR Pt1 [facility] [employer] LAB BLOOD BANK PRODUCT CODE [id number] [facility] [employer] LAB BLOOD BANK ISSUE DATE/TIME 01/25/24 11:31 [facility] [employer] [facility] BLOOD BANK Precious Garcia MD BLOOD BANK Performing Organization Address City/[facility]/ZIP Co de Phone Number [facility] [address] [place] [address], [place] [phone] * Cardiac Thromboelastography (01/25/2024 11:01 AM CDT) PAUL REASON Diffuse Cardiac Bleeding 01/25/2024 12:44 PM CDT [facility] INTEM CT 157 122 - 208 s 01/25/2024 12:44 PM CDT [facility] INTEM CFT 84 45 - 110 s 01/25/2024 12:44 PM CDT [facility] INTEM ALPHA 73 70 - 81 ?? 01/25/2024 12:44 PM CDT [facility] INTEM A10 51 46 - 67 mm 01/25/2024 12:44 PM CDT [facility] INTEM A20 58 51 - 72 mm 01/25/2024 12:44 PM CDT [facility] INTEM MCF 59 51 - 72 mm 01/25/2024 12:44 PM CDT [facility] INTEM ML 4 % 01/25/2024 12:44 PM CDT [facility] INTEM LI30 100 % 01/25/2024 12:44 PM CDT [facility] EXTEM CT 67 43 - 82 s 01/25/2024 12:44 PM CDT [facility] EXTEM CFT 99 48 - 127 s 01/25/2024 12:44 PM CDT [facility] EXTEM ALPHA 70 65 - 80 ?? 01/25/2024 12:44 PM CDT [facility] EXTEM A10 51 46 - 67 mm 01/25/2024 12:44 PM CDT [facility] EXTEM A20 58 50 - 70 mm 01/25/2024 12:44 PM CDT [facility] EXTEM MCF 59 52 - 70 mm 01/25/2024 12:44 PM CDT [facility] EXTEM ML 4 % 01/25/2024 12:44 PM CDT [facility] EXTEM LI30 100 % 01/25/2024 12:44 PM CDT [facility] FIBTEM CT 64 s 01/25/2024 12:44 PM CDT [facility] FIBTEM ALPHA 67 ?? 01/25/2024 12:44 PM CDT [facility] FIBTEM A10 12 7 - 24 mm 01/25/2024 12:44 PM CDT [facility] FIBTEM A20 13 7 - 24 mm 01/25/2024 12:44 PM CDT [facility] FIBTEM MCF 14 7 - 24 mm 01/25/2024 12:44 PM CDT [facility] FIBTEM ML 0 % 01/25/2024 12:44 PM CDT [facility] FIBTEM LI30 100 % 01/25/2024 12:44 PM CDT [facility] HEPTEM CT 205 122 - 208 s 01/25/2024 12:44 PM CDT [facility] HEPTEM CFT 96 45 - 110 s 01/25/2024 12:44 PM CDT [facility] HEPTEM ALPHA 71 70 - 81 ?? 01/25/2024 12:44 PM CDT [facility] HEPTEM A10 49 mm 01/25/2024 12:44 PM CDT [facility] HEPTEM A20 56 51 - 72 mm 01/25/2024 12:44 PM CDT [facility] HEPTEM MCF 57 51 - 72 mm 01/25/2024 12:44 PM CDT [facility] HEPTEM ML 5 % 01/25/2024 12:44 PM CDT [facility] Blood BLOOD SPECIMEN / Unknown Non-Lab Venipuncture / Unknown 01/25/2024 11:01 AM CDT 01/25/2024 11:10 AM CDT Paul Beckett [facility] HEMATOLOGY [facility] [address] [place] [address], [place] * PATH TISSUE EXAM (01/25/2024 10:13 AM CDT) Case Report Pathology Report ?Case: [id number] ? Authorizing Provider: ??Precious Garcia MD ?? Collected: ? 01/25/2024 1013 ? Ordering Location: ? [facility] ?Received: ?01/25/2024 1033 ? Hospital ? Pathologist: ? Sang Wade, ? MD ? Specimen: ?Aortic Valve Leaflets, Aortic Leaflets ? 01/25/2024 4:06 PM CDT [facility] Final Diagnosis A) AORTIC VALVE, REPLACEMENT: 1. Aortic valve leaflets (3) with nodular fibrosis and calcification (gross only examination) 01/25/2024 4:06 PM CDT [facility] Clinical Information Mr. Dennison is a 78 y.o. male with severe symptomatic aortic valve stenosis. 01/25/2024 4:06 PM CDT [facility] Gross Description A) Received in formalin, labeled with the patient's name and aortic leaflets, are 3 valve leaflets measuring 3.1 x 1.7 x 0.3 cm, 3.3 x 1.4 x 0.5 cm, and 3.2 x 1.4 x 0.3 cm. Each cusp is rigid with calcifications concentrated predominantly at the base. No soft vegetations or mass lesions are identified. The specimen is personally examined by Dr. Wade. No sections are submitted. Gross diagnosis only. Time and date in formalin: 1013 on 01/25/2024 ADW 01/25/2024 01/25/2024 4:06 PM CDT [facility] Microscopic Description Gross only diagnosis, no sections submitted. 01/25/2024 4:06 PM CDT [facility] Additional Information Interpreted at [facility] - [address], [place] [address] 01/25/2024 4:06 PM CDT [facility] Tissue (Aortic Valve Leaflets) 01/25/2024 10:13 AM CDT 01/25/2024 10:33 AM CDT Precious Garcia MD PATHOLOGY/CYTOLOG Y Performing Organization Address City/State/[facility] Co de Phone Number [facility] [address] [address], [place] * JOSE MANUEL (01/25/2024 8:17 AM CDT) Narrative Ubaldo Richard MD - 01/25/2024 8:17 AM CDT Ubaldo Richard MD ? 01/25/2024 ??8:17 AM JOSE MANUEL Start time: 01/25/2024 8:17 AM Completed: Patient identified, risks and benefits discussed, monitors and equipment assessed and anesthesia consent obtained. General Procedure Information Diagnostic Indications for Echo: assessment of surgical repair, hemodynamic monitoring, assessment of cardiac structure and function and elective. Physician Requesting Echo: Precious Garcia MD CPT Code: AVR Location performed: OR procedure room Probe Insertion: easy Inserted by: AnesthesiologistProbe Type: multiplane Report generated by: AnesthesiologistIntubated: yes Bite block inserted Bite block: Removed Anesthesia Information Anesthesiologist: ??Ubaldo Richard MD Echocardiogram Comments: ? See Imaging tab for echo report Ubaldo Richard MD ANESTHESIA PX N OTE ORDERABLES * CVC TRIPLE LUMEN, HCHG INTRDCR NON GUIDING NON LASER PR40, HCHG STOPCOCK PR5, HCHG ANES US GUIDE FOR VASC ACCESS, HCHG CATH INFUSION PR30, HCHG KIT MONITORING PR5, HCHG TUBING PR5, HCHG DRSG PR5, HCHG DRSG PR1, AHC AN INTRODUCER 1 LUMEN PERFORMABLE, HCHG KIT PR5 (01/25/2024 8:16 AM CDT) Narrative Ubaldo Richard MD - 01/25/2024 8:16 AM CDT Ubaldo Richard MD ? 01/25/2024 ??8:17 AM CVC Patient location during procedure: OR Start time: 01/25/2024 7:46 AM Indications: CVP monitoring and vascular access Completed: patient identified, risks and benefits discussed, consent obtained, hand hygiene performed, gown, full-body drape, chloraprep used and completely dried prior to procedure, cap, mask, gloves and timeout performed CVC Patient position: Trendelenburg Laterality: right Site: internal jugular Ultrasound guidance: live ultrasound, ultrasound permanent image saved and sterile gel and probe cover used in ultrasound-guided central venous catheter insertion. Needle localization (ultrasound): no pathologic findings, selected vessel patent, potential access sites evaluated, anatomically normal and needle visualized entering selected vessel. Confirmation: wire visualized in vein by ultrasound Port Insertion: all ports aspirated and all ports flushed easily Securement/Dressing: Biopatch applied, line sutured in place, dressing applied Catheter Catheter size: 9 Fr Catheter length: 10 cm Number of Lumens: single lumen Introducer present: yes Introducer type: TLIC Ubaldo Richard MD ANESTHESIA PX N OTE ORDERABLES * HCHG TUBE PR1, HCHG STYLET PR1 (01/25/2024 7:51 AM CDT) Narrative Paul Beckett CRNA - 01/25/2024 7:51 AM CDT Paul Beckett CRNA ? 01/25/2024 ??7:52 AM Procedure: ETT Patient location during procedure: OR ETT Properties Mask Ventilation: easy and oral airway Final Technique: direct laryngoscopy Type: straight Location: oral Cuffed: yes Tube Size: 8.0 mm Stylet: yes Laryngoscope Blade: Arce Blade Size: 2 Cormack-Lehane Grade View: 1 Insertion Attempts: 1 Placement Verification: auscultation, end tidal CO2 and symmetrical chest wall movement Assessment: pharynx clear, atraumatic and dentition unchanged Secured at: 22 Measured From: lips Difficulty: 1 (somewhat) (Anterior) Ubaldo Richard MD ANESTHESIA PX N OTE ORDERABLES * HCHG CATH PR5, HCHG ANES US GUIDE FOR VASC ACCESS, HCHG ANES ARTERIAL CATH FOR SAMPLE MONITOR TRANS, HCHG TUBING PR1, HCHG TUBING PR20, HCHG DRSG PR1, HCHG DRSG PR5, HCHG KIT PR5 (01/25/2024 7:16 AM CDT) Narrative Ubaldo Richard MD - 01/25/2024 7:16 AM CDT Ubaldo Richard MD ? 01/25/2024 ??7:16 AM Arterial Line Patient location during procedure: pre-op Start time: 01/25/2024 7:16 AM Indications: lab sampling and monitoring Staffing Preanesthetic Checklist Completed: patient identified, risks and benefits discussed, consent obtained and timeout performed Arterial Line Patient position: supine. ??Comment:. Laterality: left Site: radial Local Anesthetic: lidocaine 1%. Ultrasound guidance: live ultrasound and ultrasound permanent image saved. Ultrasound Indication: arteriosclerosis Needle localization (ultrasound): no pathologic findings, anatomically normal, needle visualized entering selected vessel, potential access sites evaluated and selected vessel patent. Securement/dressing: Biopatch applied, dressing applied. ??Comment: Vessel Service Tech Additional supplies used to locate vessel: no Needle Catheter size: 20 G. ??Comment:. Catheter length: 4.5 cm. ??Comment: Events: no complications. Ubaldo Richard MD ANESTHESIA PX N OTE ORDERABLES * Type and Screen (01/25/2024 6:25 AM CDT) ABORH O Rh Positive 01/25/2024 7:19 AM CDT [facility] BLOOD BANK ANTIBODY SCREEN Negative Negative 01/25/2024 7:19 AM CDT [facility] SPECIMEN EXPIRATION DATE/TIME 01/28/24 23:59 01/25/2024 7:19 AM CDT [facility]-CENTRAL LAB BLOOD BANK Blood BLOOD SPECIMEN / Unknown Non-Lab Venipuncture / Unknown 01/25/2024 6:25 AM CDT 01/25/2024 6:37 AM CDT Marcella DELEON BLOOD [facility]ANK [facility] [address] [place] [id number], * SCAN-OPERATIVE/PROCEDURE REPORT (01/25/2024 12:00 AM CDT) Narrative 01/25/2024 12:00 AM CDT Ordered by an unspecified provider. Other Clinical Staff OTHER from Last 3 Months Advance Directives Documents on File Type Date Recorded Patient Six Sigma Project Manager Expl anation Healthcare Directive 12/10/2023 024 * Full Code (Latest Code Status on File) Date Activated Date Inactivated Comments 01/27/2024 9:32 AM 01/29/2024 3:51 PM Question Answer Comments Code Status Discussion: Reviewed Preferences * Full Code Date Activated Date Inactivated Comments 01/25/2024 5:57 AM 01/27/2024 9:31 AM Question Answer Comments Code Status Discussion: Unable to Assess Preferences, Provider to review later * Full Code Date Activated Date Inactivated Comments 12/12/2023 11:36 AM 12/12/2023 6:21 PM Question Answer Comments Code Status Discussion: Reviewed Preferences * Full Code Date Activated Date Inactivated Comments 02/23/2017 5:42 AM 02/23/2017 1:48 PM * Full Code Date Activated Date Inactivated Comments 03/17/2009 6:03 AM 03/19/2009 4:53 PM Care Teams Plush Finisher Relationship Specialty Start Date End Date Bhavesh Raymond MD [address] [place] [address] PCP - General Family Practice 01/16/24
--- OUTSIDE RECORDS SUMMARY | 2024-04-25 09:16 | XMS_ITS ---
Author Organization [facility] Address [address] [place] [address] Care Team Providers Care Worship Leader Name Role Phone Unavailable Unavailable Unavailable Surgery Details Not on file Complications Check Surgery Details section. Procedure Estimated Blood Loss Check Surgery Details section. Procedure Findings Check Surgery Details section. Procedure Specimens Taken Check Surgery Details section.
--- OUTSIDE RECORDS SUMMARY | 2024-04-25 09:16 | XMS_ITS | Clinical Summary ---
Author Organization [facility] Address [address] [place] [address] Care Team Providers Care Briquetting Machine Operator Name Role Phone Elsewhere, Pcp Primary Care Provider Unavailabl e Source Comments Patient records contain information from all sites at [facility]. For routine questions regarding patient records, call [phone] during business hours, M-F 8:00 AM - 5:00 PM Central Time. Record requests for emergency care only can be directed to [phone] at any time.[facility] Allergies No known active allergies Medications Medication Sig Dispensed Refills Start Date End Date Status MULTIVIT-MIN/FOLIC/VIT K/LYCOP (ONE-A-DAY MEN'S 50 PLUS ORAL) Take 1 tablet by mouth daily. 06/13/2016 Active metoprolol tartrate (LOPRESSOR) 100 mg tablet Take 1 tablet by mouth daily. 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 Herniated Disc Lumbar 03/14/2009 Immunizations Name Administration Dates Next Due Influenza, Seasonal, Injectable 10/03/2012 Influenza, Unspecified 08/20/2014,2011,07/12/2009,2002 PCV13 01/10/2016 PPSV23 10/16/2012 Td Preservative Free (TENIVA C, DECAVAC) 11/18/2019 Tdap 07/20/2008 influenza high dose (65 year s or older) (PF) 09/05/2019,08/27/2018 influenza vaccine quad (FLUZONE/FLUARIX) (6 months and older)(PF) 10/02/2014 Family History Medical History Relation Name Comments Hypertension Brother Heart failure Father Atrial fibrillation Mother Heart failure Mother Depression Sister Relation Name Status Comments Brother Father Mother Sister Social History Tobacco Use Types Packs/Day Years Used Date Smoking Tobacco: Never Smokeless Tobacco: Never Alcohol Use Standard Drinks/Week Comments Yes 0 (1 standard drink = 0.6 oz pur e alcohol) rare PHQ-2 Answer Date Recorded PHQ-2 Score 0 04/06/2019 Nutrition Answer Date Recorded Nutrition: EVOO Fat Source Unknown 12/27 Nutrition: Servings of Fruits/Vegetables per Day Not on file 12/27/2020 Dental Answer Date Recorded Dental: Regular Dentist Unknown 12/28/19 Sex and Gender Information Value Date Recorded Sex Assigned at Male 01/01/2018 8:03 AM BULK SAUSAGE CASING TIER OFF Gender Identity Male 01/01/2018 8:03 AM BULK SAUSAGE CASING TIER OFF Sexual Orientation Straight 01/01/2018 8: 03 AM BULK SAUSAGE CASING TIER OFF Last Filed Vital Signs Vital Sign Reading Time Taken Comments Blood Pressure 130/82 11/18/2019 9:14 AM BULK SAUSAGE CASING TIER OFF Pulse 80 11/18/2019 9:14 AM BULK SAUSAGE CASING TIER OFF Temperature 37 ??C (98.6 ??F) 11/18/2019 9:14 AM BULK SAUSAGE CASING TIER OFF Respiratory Rate 20 11/18/2019 9:14 AM BULK SAUSAGE CASING TIER OFF Oxygen Saturation - - Inhaled Oxygen Concentration - - Weight 93.5 kg (206 lb 2.1 oz) 11/18/2019 9:14 A M BULK SAUSAGE CASING TIER OFF Height 164.5 cm (5' 4.76) 11/18/2019 9:14 AM CS T Body Mass Index 34.55 11/18/2019 9:14 AM BULK SAUSAGE CASING TIER OFF Plan of Treatment Health Maintenance Due Date Last Done Comments Office Visit for Blood Press ure Check / Re-check 1945 Zoster Vaccines (1 of 2) 1995 COVID-19 Vaccine (2 - 2022-2 4 season) 2023 11/17/2020 Depression Screening (Annual PHQ-2) 10/29/2023 Fall Risk Screen (Annual) 10/29/2023 DTaP,Tdap,and Td Vaccines (3 - Td or Tdap) 11/18/2029 11/18/2019, 07/20/2008 Pneumococcal vaccine (65+ years) Completed 01/10/20 16, 10/16/2012 Abdominal Aortic Aneurysm (A AA) Screen Discontinued 02/04/2017, 02/22/2016 Hepatitis C Screening Completed 01/01/2018 Influenza Vaccine Completed 08/09/2023, , 08/02/2020, Additional history exists Procedures Procedure Name Priority Date/Time Associated Diagnosis Comments HCV AB SCRN W/REFLEX TO HCV PCR, S Routine 01/01/2018 8:53 AM BULK SAUSAGE CASING TIER OFF Screening Test Laboratory CT ABDOMEN PELVIS WITHOUT IV CONTRAST RAD - Routine (most inpatients and all outpatients) 02/04/2017 9:38 PM CDT from Last 3 Months or Most Recently Relevant to Health Maintenance Results * HCV Ab Scrn w/Reflex to HCV PCR (01/01/2018 8:53 AM BULK SAUSAGE CASING TIER OFF) HCV Ab Screen, S Negative Negative 01/02/2018 8:10 AM BULK SAUSAGE CASING TIER OFF [facility] Comment:Gotqrj-tc-[id number] rat io is <1.00. Blood (Blood, Venous) 01/01/2018 8:53 AM BULK SAUSAGE CASING TIER OFF 01/02/2018 6:23 AM BULK SAUSAGE CASING TIER OFF Madeleine Clark M.D. LAB MICROBIOLOG Y - BLOOD ORDERABLES [facility] [address] [place] [address] from Last 3 Months or Most Recently Relevant to Health Maintenance Care Teams Briquetting Machine Operator Relationship Specialty Start Date End Date Elsewhere, Pcp PCP - General Family Medicine 12/13/20
--- OUTSIDE RECORDS SUMMARY | 2024-04-25 09:16 | XMS_ITS | Referral Summary ---
Author Organization [facility] Address [address] [place] [address] Care Team Providers Care Log Turner Name Role Phone Elsewhere, Pcp Primary Care Provider Unavailabl e Source Comments Patient records contain information from all sites at [facility]. For routine questions regarding patient records, call [phone] during business hours, M-F 8:00 AM - 5:00 PM Central Time. Record requests for emergency care only can be directed to [phone] at any time.[facility] Allergies No known active allergies Medications Medication [...] quad (FLUZONE/FLUARIX) (6 months and older)(PF) 10/02/2014 Social History Tobacco Use Types Packs/Day Years [...] Sex Assigned at Male 01/01/2018 8:03 AM TITLE OFFICER Gender Identity Male 01/01/2018 8:03 AM TITLE OFFICER Sexual Orientation Straight 01/01/2018 8: 03 AM TITLE OFFICER Last Filed Vital Signs Vital Sign Reading Time Taken Comments Blood Pressure 130/82 11/18/2019 9:14 AM TITLE OFFICER Pulse 80 11/18/2019 9:14 AM TITLE OFFICER Temperature 37 ??C (98.6 ??F) 11/18/2019 9:14 AM TITLE OFFICER Respiratory Rate 20 11/18/2019 9:14 AM TITLE OFFICER Oxygen Saturation - - Inhaled Oxygen Concentration - - Weight 93.5 kg (206 lb 2.1 oz) 11/18/2019 9:14 A M TITLE OFFICER Height 164.5 cm (5' 4.76) 11/18/2019 9:14 AM CS T Body Mass Index 34.55 11/18/2019 9:14 AM TITLE OFFICER Plan of Treatment Not on file Procedures Procedure Name Priority Date/Time Associated Diagnosis Comments HCV AB SCRN W/REFLEX TO HCV PCR, S Routine 01/01/2018 8:53 AM TITLE OFFICER Screening Test Laboratory CT ABDOMEN PELVIS WITHOUT IV CONTRAST RAD - Routine (most inpatients and all outpatients) 02/04/2017 9:38 PM CDT from Last 3 Months or Most Recently Relevant to Health Maintenance Results * HCV Ab Scrn w/Reflex to HCV PCR (01/01/2018 8:53 AM TITLE OFFICER) HCV Ab Screen, S Negative Negative 01/02/2018 8:10 AM TITLE OFFICER [facility] Comment:Dmepts-jz-tzmqit rat io is <1.00. Blood (Blood, Venous) 01/01/2018 8:53 AM TITLE OFFICER 01/02/2018 6:23 AM TITLE OFFICER Madeleine Clark M.D. LAB MICROBIOLOG Y - BLOOD ORDERABLES [facility] [address] [place] [address] from Last 3 Months or Most Recently Relevant to Health Maintenance Care Teams Log Turner Relationship Specialty Start Date End Date Elsewhere, Pcp PCP - General Family Medicine 12/13/20
== END 2024-04-25 09:13 | disposition home or self-care (01) ==
LOC: FBOREF 09:13
PROVIDERS: PCP Family Medicine; Visit Provider Family Medicine
DX: Z01.818 Encounter for other preprocedural examination (principal)
CPT/HCPCS: 80048; 85025

== ENCOUNTER 2025-02-23 09:43 | Outpatient (CLI) | payer MEDICARE, BC, SELFPAY | END 2025-02-23 09:44 | disposition home or self-care (01) | LOC: RAD 09:45 | PROVIDERS: PCP Family Medicine; Visit Provider Internal Medicine | DX: Z95.2 Presence of prosthetic heart valve (principal); I51.7 Cardiomegaly; I10 Essential (primary) hypertension | CPT/HCPCS: 93306 ==

== ENCOUNTER 2025-06-17 11:42 | Outpatient (CLI) | payer MEDICARE, BC, SELFPAY | END 2025-06-17 11:43 | disposition home or self-care (01) | PROVIDERS: PCP Family Medicine; Visit Provider Family Medicine | DX: I10 Essential (primary) hypertension (principal); E78.2 Mixed hyperlipidemia | CPT/HCPCS: 80048; 80061; 84460 ==